=== PATIENT | male | born 1940 | race Caucasian/White ===

== ENCOUNTER 2022-12-25 13:42 | Outpatient (RCR) | payer MEDICARE, BC, SELFPAY ==
--- NOTE | 2022-12-25 14:50 | PT.OPEX ---
PT [facility] Start: 12/25/22 10:46 Freq: Status: Active Protocol: Document 12/25/22 10:46 TSERING (Rec: 12/25/22 14:46 BRITTONV [id number]) E-signed By [facility] Insurance Information Recert Due Date 03/26/23 Insurance Name Medicare B,Blue [employer] Medical Diagnosis M17.11 OA of R knee Treating Diagnosis M25.561 Pain in R knee M25.661 Stiffness in R knee Referring MD Tamez Subjective Subjective Pt presents pre-op only for RTKA on 01/[address] Tamez. Huber is accompanied by his . This is his first joint replacement. Pt reports that knee pain has been present for years. No AD use. Pt states that elliptical makes pain worse. Denies using pain medications or any other pain management strategies. Multilevel home, 2 steps to enter, no rails. Walk in shower, bath bench, grab bars. Has SPC and RW to use post-op . Pt undergoing OP PT at [facility] post-op. Pain Comments 07/04 Date of Next Physician Visit 01/19/23 Date of Surgery (If applicable) 01/09/23 Current Work Status Retired Precautions Treatment Precautions/Contraindications PMHx: HTN, HLD, BCC, TIA Weight Bearing Status Full Weight Bearing Therapy Limitations/Systems Review Not Limited Objective Range of Motion R knee ROM = 0-124 L knee ROM = 0-131 Hamstring length = B WNLs Strength BUEs = B WNLs Hip flexion R/L = 4/5 Hip abd R/L = 5/5 Hip add R/L = 5/5 Quads R/L = 5/5 Hamstrings R/L = 5/5 Balance & Gait No AD use, antalgic gait pattern with dec WB RLE Assessment Assessment/Impression Pt presents pre-op only for RTKA on 01/09/[address] Tamez. PMHx: HTN, HLD, BCC, TIA. Huber is accompanied by his . Pt with R knee pain for the last several months. R knee ROM is slightly limited compared to L. R hip flexion is the most limited MMT. Pt and spouse were educated on HEP, POC, post-op precautions, equipment needs, stair training, pain management strategies, and fall prevention. Pt will be performing post-op PT at [facility]. Primary Functional Limitations Pain with functional activities Dec R knee strength Plan of Care Rehabilitation Potential Good Physical Therapy Goals In one session: 1. Pt will be IND with TKA HEP in order to perform post-op IND. 2. Pt will navigate 4 steps with B rails in order to enter /exit home safely post-op. Coordination/Communication With Referral Source Treatment Plan/Direct Interventions Self-Care/Home Management, Therapeutic Activities, Therapeutic Exercises Frequency/Duration 1x (pre-op only) Patient Will Be Discharged From Therapy Completion of LTG(s), Independent w/HEP Evaluation Billing Untimed Code Treatment Minutes 10 PT Eval No Charge No Complexity Low Certification Information Initial Certification Date 12/25/22 Ending Certification Date 03/26/23 Provider Signature Shows Agreement With POC & Medical Necessity Physician Comment/Change : Physician NPI Number #
== END 2023-02-22 10:34 | disposition home or self-care (01) ==
PROVIDERS: PCP Family Medicine; Visit Provider Orthopaedic Surgery
DX: M17.11 Unilateral primary osteoarthritis, right knee (principal); M25.561 Pain in right knee; M25.661 Stiffness of right knee, not elsewhere classified; Z74.09 Other reduced mobility; Z51.89 Encounter for other specified aftercare
CPT/HCPCS: 97110; 97161; 97530

== ENCOUNTER 2023-01-09 05:59 | Day surgery (SDC) | payer MEDICARE, BC, SELFPAY ==
[2023-01-09] VITALS (25 sets, daily range): BP systolic 96–145; BP diastolic 66–99; PULSE 50–96; RESP 13–18; TEMP 35.8–36.7; O2SAT 91–97; BMI 34.0
[2023-01-09] MEDS: OXYCODONE (CR) 10 MG TAB.ER.12H PO (06:30)
[2023-01-09] MEDS: ACETAMINOPHEN 500 MG TABLET 1000 MG PO ×3 (06:30→19:01)
[2023-01-09] MEDS: CELECOXIB 200 MG CAPSULE PO (06:30)
[2023-01-09] MEDS: LACTATED RINGERS 1000 ML 1,000 ML 100 ML IV ×2 (06:50→09:30)
[2023-01-09] MEDS: SODIUM CHLORIDE 0.9 % (FLUSH) 10 ML SYRINGE IVF (06:50)
[2023-01-09] MEDS: MIDAZOLAM HCL 1 MG/ML inj IVP (07:28)
[2023-01-09] MEDS: fentaNYL 100 MCG/2 ML inj IVP (07:28)
--- NOTE | 2023-01-09 07:37 | SUR.PREOP ---
TIME?OUT:?0726 PT/RN/MDA?VERIFICATION?OF?SURGICAL?SITE,?PROCEDURE,?AND?CONSENT OBTAINED?PRIOR?TO?INVASIVE?PROCEDURE.
--- NOTE | 2023-01-09 07:42 | P.NB_ITS ---
Nerve Block Nerve Block Time Seen by Provider: 07:34 Date Seen: 01/09/23 Type of block requested by surgeon for post-operative analgesia: adductor canal Side: right Time out performed: Yes Verification of patient name: Yes Verification of date of : Yes Site marking: site marked Name of person performing procedure: Jose Continuous monitoring Was continuous monitoring of O2 sat, B/P, principal data architect, recorded every 15 minutes?: Yes Procedure Checklist: sterile prep, needles and gloves Ultrasound guided. Images saved: Yes Medications given in 5ml increments after negative aspiration: Ropivicaine %: 0.5 mL: 20 Needle gauge: 20 Decadron (mg): 10 Precedex (mcg): 25 Patient tolerated procedure well: Yes Additional comments: Needle noted adjacent to nerve Block Charges Block Charge (with Pro Fee): Femoral Nerve Use of Ultrasound Machine for Block: Yes- US Guidance/pain block
--- NOTE | 2023-01-09 07:43 | P.NB_ITS ---
Nerve Block Nerve Block Time Seen by Provider: 07:34 Date Seen: 01/09/23 Type of block requested by surgeon for post-operative analgesia: geniculars Side: right Time out performed: Yes Verification of patient name: Yes Verification of date of : Yes Site marking: site marked Name of person performing procedure: Jose Continuous monitoring Was continuous monitoring of O2 sat, B/P, monitor and storage bin tender, recorded every 15 minutes?: Yes Procedure Checklist: sterile prep, needles and gloves Medications given in 5ml increments after negative aspiration: Ropivicaine %: 0.5 mL: 9 Needle gauge: 25 Patient tolerated procedure well: Yes Block Charges Block Charge (with Pro Fee): Genicular Nerve Block Use of Ultrasound Machine for Block: No
--- NOTE | 2023-01-09 07:44 | W.ANESCHARGE ---
Anesthesia Charges Start Date/Time Anesthesia Start Date: 01/09/23 Stop Date/Time Anesthesia Stop Date: 01/09/23 Summary Extremes of Age - Over 70 or under 1: MDA
[2023-01-09] MEDS: TRANEXAMIC ACID 100 MG/ML INJ 1000 MG IV (08:27)
[2023-01-09] MEDS: CEFAZOLIN 2 GM INJ IVP (08:27)
--- NOTE | 2023-01-09 09:37 | CRLHL7_ITS ---
For Patients: As a result of the Century Cures Act, medical imaging exams and procedure reports are released immediately into your electronic medical record. You may view this report before your referring provider. If you have questions, please contact your health care provider. INDICATION: Right knee replacement. Followup. TECHNIQUE: Two portable postoperative images of the right knee. FINDINGS: Right total knee arthroplasty. Patellar resurfacing. The components are adequately aligned and well seated. Air within the soft tissues and joint space related to the surgery. IMPRESSION: Adequate alignment status post right total knee arthroplasty. Dictated by Roge Dickerson MD @ 01/09/2023 11:08:54 AM (Electronically Signed)
--- NOTE | 2023-01-09 09:44 | PM.ORPRC ---
Procedure Note Date of procedure: 01/09/23 Procedure: PREOPERATIVE DIAGNOSIS: Right knee osteoarthritis POSTOPERATIVE DIAGNOSIS: Right knee osteoarthritis NAME OF OPERATION: Right total knee arthroplasty SURGEON: Flex Tamez MD COMMUNITY SUPPORT SPECIALIST: LINDSEY Raya ANESTHESIA: Spinal ESTIMATED BLOOD LOSS: 0 mL COMPLICATIONS: None SPECIMENS: None DRAINS: None PREOPERATIVE ANTIBIOTICS: Ancef 2 grams IMPLANTS: 1. J&J Attune #6 posterior stabilized femur 2. # 7 fixed-bearing tibia 3. #6 posterior stabilized, 5 mm fixed-bearing polyethylene 4. 38 patella INDICATIONS: The patient is a 82-year-old with a longstanding history of severe, unrelenting right knee pain secondary to end-stage (grade IV) right knee osteoarthritis. Despite appropriate nonoperative management, including activity modification, anti-inflammatories, gieu-lqi-yxeubun pain medication, bracing, physical therapy, and injections they continue to have pain and disability. Operative intervention was offered. The risks, benefits and expected outcomes were discussed in detail. These included but were not limited to: Infection, bleeding, injury to blood vessel or nerve, venous thromboembolism. All questions were answered to their satisfaction. Use of an lead assistant manager was necessary throughout the case for patient positioning and safety, soft tissue retraction, and closure. PROCEDURE: Spinal anesthesia was administered. The patient was placed supine on the operating table. The lead assistant manager made sure the patient was positioned appropriately. The lower extremity was prepped and draped in the usual sterile fashion. The limb was exsanguinated with the Dc bandage. The pneumatic tourniquet was inflated to 300 mmHg. A standard anterior incision was made with the knee in flexion. Subcutaneous dissection was sharply taken through fascial layer #1. Full-thickness medial and lateral flaps were elevated. The lead assistant manager retracted the soft tissues and protected them throughout the case. A standard medial parapatellar approach was made. The patella was everted. The infrapatellar fat pad was preserved. The menisci and cruciate ligaments were sharply d?brided. Marginal osteophytes were d?brided with the rongeur. The drill was used to penetrate the femoral canal. The canal was aspirated and irrigated with pulse lavage. The intramedullary femoral guide was placed for a 5-degree valgus cut, removing 10 mm off the distal femur. The saw was used to make the cut. Whitesides line and the trans epicondylar axis were marked. The femoral sizing guide was pinned onto the distal femur. Three degrees of external rotation nicely parallels the transepicondylar axis. Pins were placed for posterior referencing. The four-in-one cutting guide was pinned onto the distal femur. The anterior, posterior, and chamfer cuts were made. The lead assistant manager protected the collateral ligaments. The box cutting guide was pinned. The box cuts were made. The boxed trial was placed and was an excellent fit. Drill holes for the lugs were made. Attention was then turned to the proximal tibia. The extramedullary tibial guide was placed for a neutral varus/valgus cut with 5 degrees of posterior slope, removing 2 mm based off the medial tibial surface. The lead assistant manager protected the collateral ligaments and the neurovascular bundle. The saw was used to make the cut. Trial components were placed. The knee was nicely balanced in both flexion and extension. The trial components were removed. The tray was placed in appropriate rotation, parallel to our tibial cutting pins. It was pinned by the lead assistant manager and the drill and the punch were used. The tray was removed. The punch was used again. We placed a bone plug in the femoral canal. Attention was then turned to the patella. [place] patellar thickness was 24 mm. The lobster claw resection guide was used with the 9.5 mm eloy. The saw was used to make the cut. Drill holes were made by the lead assistant manager. The trial was placed and was an excellent fit. Cancellous surfaces were irrigated with pulse lavage and thoroughly dried by the lead assistant manager. We cemented the tibial component, then the femoral component. We impacted the 5 mm polyethylene onto the tibial tray. The knee was brought into full extension. We then cemented the patellar component. Excessive cement was removed. The cement was allowed to harden. The knee was taken through a range of motion and was found to be nicely balanced in both flexion and extension. The patella tracks centrally. The lead assistant manager did a three minute dilute Betadine solution soak. The lead assistant manager irrigated the wound with 3 liters of normal saline via pulse lavage. The lead assistant manager reapproximated the extensor mechanism with #1 Vicryl in an interrupted fubceh-mm-ljlsu fashion. The lead assistant manager then ran the extensor mechanism with a #1 PDO Stratafix. The lead assistant manager closed the subcutaneous tissues with a 3-0 Stratafix and the skin with a running 3-0 Stratafix in a subcuticular fashion. Glue was used to seal the skin. The lead assistant manager placed a dry dressing, KING stocking, and Polar Care. Sponge and needle counts were correct x2. The patient tolerated the procedure well. There were no apparent complications. They were carefully transferred to the hospital bed and taken to the postanesthesia care unit in satisfactory condition. PLAN: The patient will be mobilized with physical therapy. Aspirin will be used for DVT prophylaxis. They will be discharged to home once medically appropriate.
--- NOTE | 2023-01-09 10:29 | P.ANES_ITS ---
Anesthesia Charges Start Date/Time Anesthesia Start Date: 01/09/23 Anesthesia Start Time: 08:16 Stop Date/Time Anesthesia Stop Date: 01/09/23 Anesthesia Stop Time: 10:20 Summary Extremes of Age - Over 70 or under 1: ADULT CROSSING GUARD
--- NOTE | 2023-01-09 11:21 | W.ANESCHARGE ---
Anesthesia Charges Start Date/Time Anesthesia Start Date: 01/09/23 Anesthesia Start Time: 08:16 Stop Date/Time Anesthesia Stop Date: 01/09/23 Anesthesia Stop Time: 10:20 Summary Extremes of Age - Over 70 or under 1: MDA
--- NOTE | 2023-01-09 14:15 | P.IMCN_ITS ---
Date of Consult Consult date: 01/09/23 Requesting Physician: Orthopedics Primary Care Provider: Jose D Rose MD Consult Narrative Narrative: HOSPITALIST CONSULT Hospital Day # 1 Post Op Day # 0 NAME OF OPERATION: Right total knee arthroplasty SURGEON: Flex Tamez MD ANESTHESIA: Spinal ESTIMATED BLOOD LOSS: 0 mL COMPLICATIONS: None The hospital medicine team was asked by Orthopedic team to manage the patient's hx of TIA, PFO, HTN. There have been no perioperative concerns or questions. I updated the [facility] histories and Medications and Allergies in the Expanse tabs REVIEW OF SYSTEMS: 12-point ROS completed with patient and negative unless otherwise stated in HPI or below. PHYSICAL EXAM: CODE STATUS: FULL CODE CONSTITUTIONAL: Conversive, good historian. A/O. Knows setting and context. VITAL SIGNS: see record. HEENT: Normocephalic, atraumatic. PERRL, EOMI, conjunctivae pink, no scleral icterus. Ears and nose externally normal. Pharynx normal. NECK: No JVD. No carotid bruit, no thyromegaly, no adenopathy. CHEST: Clear to auscultation bilaterally HEART: No harsh murmurs. S1/S2. ABDOMEN: Flat, soft, nontender. Normal bowel sounds. Moderately obese. EXTREMITIES: No edema. MUSCULOSKELETAL: NEURO: Cranial nerves intact. Normal affect. No gross deficits. Speech intelligible. SKIN: No rashes, petechiae, concerning changes PSYCHIATRIC: Euthymic. INVESTIGATIONS: EMR Reviewed DISPOSITION: MedSurg Recovery; Discharge tomorrow DVT: Agree with ortho plan for DVT prevention GI: PO intake PFSH [facility] Medical History (Updated 01/09/23 @ 14:25 by Rosangela Silva MD) PFO (patent foramen ovale) ?Q21.12 - Patent foramen ovale (ICD-10) TIA (transient ischemic attack) ?G45.9 - Transient cerebral ischemic attack, unspecified (ICD-10) Hyperlipidemia ?E78.5 - Hyperlipidemia, unspecified (ICD-10) Hypertension ?I10 - Essential (primary) hypertension (ICD-10) Gout ?M10.9 - Gout, unspecified (ICD-10) Basal cell carcinoma (BCC) ?C44.91 - Basal cell carcinoma of skin, unspecified (ICD-10) Surgical History (Updated 01/09/23 @ 14:44 by Rosangela Silva MD) History of total knee arthroplasty ?Z96.659 - Presence of unspecified artificial knee joint (ICD-10) H/O oral surgery ?Z98.890 - Other specified postprocedural states (ICD-10) H/O bilateral cataract extraction (~2015) ?Z98.41 - Cataract extraction status, right eye (ICD-10) ?Z98.42 - Cataract extraction status, left eye (ICD-10) History of arthroscopy of right knee (11/27/17) ?Z98.890 - Other specified postprocedural states (ICD-10) Family History (Updated 12/12/22 @ 09:29 by Charo Meyer RN) Father Pancreatic cancer Sister Thyroid cancer Mother Liver cancer Brother Cancer Social History Highest level of school completed/degree received: some college, no degree Smoking Status: Former smoker What tobacco products do you use: cigarettes Smoking packs per day: 1 Smoking cigarettes per day: 20.0 Years smoked: 15 Smoking pack-years: 15.00 Smoking quit date/years: >15 years ago Do you use any of these nicotine containing products: None Second hand tobacco smoke exposure: No How often do you have a drink containing alcohol: 4 or more times a week Alcohol type: beer How many standard drinks containing alcohol do you have on a typical day: 1 or 2 How often do you have six or more drinks on one occasion: Never AUDIT-C Alcohol total score: 4 Non-prescribed substance use: denies use Caffeine: Yes (coffee, 3 cups/AM) service: Yes Meds Home Medications and Allergies Home Medications Medication Instructions Recorded Confirmed Type allopurinol 300 mg tablet 300 mg PO DAILY 09/20/22 01/09/23 History aspirin 81 mg tablet,delayed 81 mg PO QDAY 09/20/22 01/09/23 History release lisinopril 5 mg tablet 5 mg PO DAILY 09/20/22 01/09/23 History lovastatin 20 mg tablet 20 mg PO QPM 09/20/22 01/09/23 History tamsulosin 0.4 mg capsule 0.4 mg PO DAILY 09/20/22 01/09/23 History Allergies Allergy/AdvReac Type Severity Reaction Status Date / Time No Known Drug Allergies Allergy Verified 01/09/23 06:15 Exam Const: Vital Signs, click to edit/add: Vital Signs - 24 hr 01/09/23 06:53 01/09/23 07:28 01/09/23 07:30 Temperature 97.6 F Pulse Rate 64 57 L 57 L Pulse Rate [Left P ulse Oximeter] Respiratory Rate 16 16 16 Blood Pressure 145/77 H 131/75 118/74 Blood Pressure [Ri ght Arm] Pulse Oximetry 96 96 92 Oxygen Delivery Me thod Room Air Nasal Cannula Nasal Cannula Oxygen Flow Rate 3 3 01/09/23 07:35 01/09/23 10:15 01/09/23 10:20 Temperature 97.4 F L Pulse Rate 54 L 73 69 Pulse Rate [Left P ulse Oximeter] Respiratory Rate 16 16 13 Blood Pressure 118/74 96/66 105/66 Blood Pressure [Ri ght Arm] Pulse Oximetry 94 92 95 Oxygen Delivery Me thod Nasal Cannula Nasal Cannula Oxygen Flow Rate 3 3 01/09/23 10:25 01/09/23 10:30 01/09/23 10:35 Temperature Pulse Rate 66 63 57 L Pulse Rate [Left P ulse Oximeter] Respiratory Rate 14 16 16 Blood Pressure 101/72 110/77 114/72 Blood Pressure [Ri ght Arm] Pulse Oximetry 95 94 93 Oxygen Delivery Me thod Room Air Oxygen Flow Rate 01/09/23 10:40 01/09/23 10:45 01/09/23 10:53 Temperature 96.8 F L 96.8 F L Pulse Rate 60 66 58 L Pulse Rate [Left P ulse Oximeter] Respiratory Rate 14 16 16 Blood Pressure 114/79 117/80 Blood Pressure [Ri ght Arm] 119/83 Pulse Oximetry 91 91 Oxygen Delivery Me thod Room Air Oxygen Flow Rate 01/09/23 11:00 01/09/23 11:15 01/09/23 11:30 Temperature 96.5 F L 96.5 F L 96.5 F L Pulse Rate Pulse Rate [Left P ulse Oximeter] 56 L 54 L 50 L Respiratory Rate 16 16 16 Blood Pressure Blood Pressure [Ri ght Arm] 121/79 124/83 132/84 Pulse Oximetry 92 94 96 Oxygen Delivery Me thod Room Air Room Air Room Air Oxygen Flow Rate 01/09/23 11:45 01/09/23 12:15 01/09/23 12:45 Temperature 96.4 F L 96.7 F L 96.4 F L Pulse Rate Pulse Rate [Left P ulse Oximeter] 51 L 81 95 Respiratory Rate 16 16 16 Blood Pressure Blood Pressure [Ri ght Arm] 125/76 115/70 118/87 Pulse Oximetry 96 97 97 Oxygen Delivery Me thod Room Air Room Air Room Air Oxygen Flow Rate Assessment and Plan Assessment and plan (1) History of total knee arthroplasty: Problem comment: Surgery date 01/09. Hospital medicine staff is happy to follow this patient through to discharge. There have been no perioperative concerns or events. We will hold his 5 mg of lisinopril in the morning. We agree with aspirin b.i.d. for prophylaxis. I discussed his risk of TIA and his previous history of TIA likely related to his PFO. Staff awareness is probably the most important part and continued aspirin anticoagulation. Status: Acute (2) Osteoarthritis of right knee: Status: Chronic (3) Hypertension: Problem comment: Postoperative blood pressure 118/87. Hold lisinopril. 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 Status: Acute (5) PFO (patent foramen ovale): Problem comment: Uncorrected. Status: Acute (6) Gout: Problem comment: Continue allopurinol Status: Acute
[2023-01-09] MEDS: CEFAZOLIN 2 GM in 0.9 % SODIUM CHLORIDE Mini-bag 100 ML IVPB ×2 (15:20→23:16)
[2023-01-09] MEDS: LOVASTATIN 20 MG TABLET PO (17:58)
--- NOTE | 2023-01-09 18:47 | PC.NURSE ---
Pt alert and oriented. Pt had no complaints of pain. Pt had adequate oral intake. Pt advanced to regular diet and tolerated well. Pt is a SBA with walker. Pt saline locked. Pt voided. Dressing dry and intact.
[2023-01-09] MEDS: SENNOSIDES 1 TAB TABLET 2 TAB PO (21:58)
[2023-01-09] MEDS: ASPIRIN 81 MG TABLET EC PO (21:58)
[2023-01-09] MEDS: MELATONIN 3 MG TABLET PO (23:16)
[2023-01-10] MEDS: ACETAMINOPHEN 500 MG TABLET 1000 MG PO ×2 (00:48→06:31)
[2023-01-10 02:45] VITALS: BP 103/64; PULSE 72; RESP 14; TEMP 36.8; O2SAT 96
[2023-01-10 06:15] LABS: Basophils Percent Auto 0.1 % (0.0-3.0); Hematocrit 39.4 % (37.0-53.0); Hemoglobin* 13.1 gm/dL (13.5-17.5); Immature Granulocytes Pct Auto 0.8 %; Lymphocytes Percent Auto 9.2 % (20-44); Mean Corpuscular HGB Conc 33 gm/dL (32-36); Mean Corpuscular Hemoglobin 29 pg (26-34); Mean Corpuscular Volume 86 fL (80-100); Monocytes Percent Auto 8.5 % (0.0-11.0); Neutrophils Percent Auto 81.4 % (42.0-72.0); Platelet Count* 179 K/uL (140-440); RDW Coefficient of Variation % 13.8 % (11.5-15.5); Red Blood Count 4.57 m/uL (4.30-5.90); White Blood Count* 11.08 K/uL (4.50-11.00)
[2023-01-10 06:17] LABS: Slide Review Reflex No
[2023-01-10 06:32] LABS: Sodium* 136 mmol/L (135-149)
[2023-01-10 06:35] LABS: Creatinine* 1.1 mg/dL (0.5-1.5); Est. Creatinine Clearance* 50.88; Estimated Glomerular Filt Rate 67 ml/min
[2023-01-10 06:36] LABS: Blood Urea Nitrogen* 20 mg/dL (7-30)
[2023-01-10 06:53] LABS: INR 1.13 (0.91-1.10); Prothrombin Time 15.2 Seconds
[2023-01-10 07:20] VITALS: BP 102/66; PULSE 75; RESP 16; TEMP 36.4; O2SAT 97
--- NOTE | 2023-01-10 07:30 | PC.NURSE ---
Pt is oriented to self x3. Afebrile. Pt reports 4/10 pain in right knee, pain managed with scheduled Tylenol.?Right knee dressing is CDI. Pt denies chest pain, SOB, N/V.?Pt is tolerating a regular diet and voiding. Pt is up A1 in room. Pt slept intermittently throughout?night.??
--- NOTE | 2023-01-10 08:34 | PM.ORPN ---
Subjective Subjective Time Seen by Provider: 07:15 Date Seen: 01/10/23 Principal diagnosis: status post right knee replacement Interval history: Huber is comfortable this morning. He will be discharging to home today. Ortho Exam Narrative Exam Narrative: Alert and oriented x3. Patient is in no acute distress. Converses without labored breathing. Hearing is grossly intact. Ambulates with a Walker. Examination of the right knee shows no erythema or warmth or sign of infection. Mild edema. Mild effusion. CMS intact right lower extremity. Bilateral calves are soft and nontender. Const Vital Signs, click to edit/add: Vital Signs - 24 hr 01/09/23 10:15 01/09/23 10:20 01/09/23 10:25 Temperature 97.4 F L Pulse Rate 73 69 66 Pulse Rate [Left Pulse Oximeter] Respiratory Rate 16 13 14 Blood Pressure 96/66 105/66 101/72 Blood Pressure [Right Arm] Pulse Oximetry 92 95 95 Oxygen Delivery Method Nasal Cannula Oxygen Flow Rate 3 01/09/23 10:30 01/09/23 10:35 01/09/23 10:40 Temperature Pulse Rate 63 57 L 60 Pulse Rate [Left Pulse Oximeter] Respiratory Rate 16 16 14 Blood Pressure 110/77 114/72 114/79 Blood Pressure [Right Arm] Pulse Oximetry 94 93 91 Oxygen Delivery Method Room Air Oxygen Flow Rate 01/09/23 10:45 01/09/23 10:53 01/09/23 11:00 Temperature 96.8 F L 96.8 F L 96.5 F L Pulse Rate 66 58 L Pulse Rate [Left Pulse Oximeter] 56 L Respiratory Rate 16 16 16 Blood Pressure 117/80 Blood Pressure [Right Arm] 119/83 121/79 Pulse Oximetry 91 92 Oxygen Delivery Method Room Air Room Air Oxygen Flow Rate 01/09/23 11:15 01/09/23 11:30 01/09/23 11:45 Temperature 96.5 F L 96.5 F L 96.4 F L Pulse Rate Pulse Rate [Left Pulse Oximeter] 54 L 50 L 51 L Respiratory Rate 16 16 16 Blood Pressure Blood Pressure [Right Arm] 124/83 132/84 125/76 Pulse Oximetry 94 96 96 Oxygen Delivery Method Room Air Room Air Room Air Oxygen Flow Rate 01/09/23 12:15 01/09/23 12:45 01/09/23 13:45 Temperature 96.7 F L 96.4 F L 96.5 F L Pulse Rate Pulse Rate [Left Pulse Oximeter] 81 95 59 L Respiratory Rate 16 16 16 Blood Pressure Blood Pressure [Right Arm] 115/70 118/87 133/99 H Pulse Oximetry 97 97 95 Oxygen Delivery Method Room Air Room Air Room Air Oxygen Flow Rate 01/09/23 14:45 01/09/23 15:09 01/09/23 16:00 Temperature 97.5 F L 97.8 F Pulse Rate Pulse Rate [Left Pulse Oximeter] 90 96 Respiratory Rate 16 18 Blood Pressure Blood Pressure [Right Arm] 130/90 H 122/80 Pulse Oximetry 95 95 97 Oxygen Delivery Method Room Air Room Air Oxygen Flow Rate 01/09/23 17:00 01/09/23 19:00 01/09/23 23:15 Temperature 97.8 F 98.0 F Pulse Rate Pulse Rate [Left Pulse Oximeter] 93 83 Respiratory Rate 16 16 Blood Pressure Blood Pressure [Right Arm] 108/72 122/76 Pulse Oximetry 93 97 94 Oxygen Delivery Method Room Air Room Air Oxygen Flow Rate 3 01/09/23 23:15 01/09/23 23:15 01/10/23 02:45 Temperature 97.8 F 98.3 F Pulse Rate Pulse Rate [Left Pulse Oximeter] 88 88 72 Respiratory Rate 16 16 14 Blood Pressure Blood Pressure [Right Arm] 124/73 103/64 Pulse Oximetry 94 96 Oxygen Delivery Method Room Air Room Air Oxygen Flow Rate 01/10/23 07:20 01/10/23 07:20 01/10/23 07:20 Temperature 97.5 F L Pulse Rate Pulse Rate [Left Pulse Oximeter] 75 75 Respiratory Rate 16 Blood Pressure Blood Pressure [Right Arm] 102/66 Pulse Oximetry 97 97 Oxygen Delivery Method Room Air Oxygen Flow Rate Assessment and Plan Assessment and plan (1) History of total knee arthroplasty: Problem details: Surgery date 01/09. Status: Acute Assessment and Plan: Plan for discharge is today to home if they meet discharge criteria. DVT prophylaxis includes aspirin 81 mg twice daily x1 month, Mihai stockings x1 month may remove for 1 hr per day, frequent ambulation Remove dressing in 1 week. Observe wound and phone Orthopedics with any questions or concerns Return to clinic in 1 week for a wound check Return to clinic in [address] Tamez Minimize narcotic use. Wean off and discontinue soon as possible. Activities as tolerated. No strenuous activity. Outpatient physical therapy as scheduled. Ice and elevate the operative extremity. No restriction on ice. (2) Osteoarthritis of right knee: Status: Chronic (3) Hypertension: Problem details: Postoperative blood pressure 118/87. Hold lisinopril. 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 Status: Acute (5) PFO (patent foramen ovale): Problem details: Uncorrected. Status: Acute (6) Gout: Problem details: Continue allopurinol Status: Acute
[2023-01-10] MEDS: SENNOSIDES 1 TAB TABLET 2 TAB PO (08:44)
[2023-01-10] MEDS: TAMSULOSIN HCL 0.4 MG CAPSULE PO (08:44)
[2023-01-10] MEDS: allopurinoL 300 MG TABLET PO (08:44)
[2023-01-10] MEDS: ASPIRIN 81 MG TABLET EC PO (08:44)
--- NOTE | 2023-01-10 10:12 | PC.NURSE ---
Pt alert and oriented. Pt had complaints of pain rated at a 1; stated scheduled Tylenol was sufficient at this time. Pt is a SBA with walker. Pt's IV removed at 915; catheter intact. Dressing dry and intact. Pt discharging home with this AM.?
--- NOTE | 2023-01-10 15:12 | PC.SOCIAL ---
Per therapy, pt is moving around well during therapy. Pt has assistance from pt's spouse in recovery at home. There are no identified social work needs.
== END 2023-01-10 10:35 | disposition home or self-care (01) ==
LOC: OR 06:01 → MEDSURG 06:08
PROVIDERS: PCP Family Medicine; Visit Provider Orthopaedic Surgery
PROC: (CPT 27447; principal; 2023-01-09 07:45)
DX: M17.11 Unilateral primary osteoarthritis, right knee (principal); G89.18 Other acute postprocedural pain; I10 Essential (primary) hypertension; Z86.73 Personal history of transient ischemic attack (TIA), and cerebral infarction without residual deficits; Q21.12 Patent foramen ovale; M10.9 Gout, unspecified
CPT/HCPCS: 27447; 01402; 36415; 64447; 64454; 73560; 76942; 82565; 84132; 84295; 84520; 85025; 85610; 94761; 97110; 97116; 97161; 97165; 97530; 99100; A9270; C1776; J0690; J1100; J2250; J2405; J2704; J2795; J3010; J7120